=== PATIENT | male | born 1975 | race Caucasian/White ===

== ENCOUNTER 2016-09-30 20:01 | Emergency (ER) | payer MEDICAID ==
[~2016-09-30] VITALS: Ht 180.3 cm; Wt 90.2 kg
[~2016-09-30 20:01] MED LIST: FENO145T32 PO; FENO48TA16 PO; FINA1TAB PO; HYDR-3240 PO; SERT100T PO; SERT50TA PO
[2016-09-30 20:03] VITALS: BP 150/109
[2016-09-30] MEDS ORDERED: DIPH,PERTUSS(ACELL),TET VAC/PF 0.5 ML IM-VACC ONE ×2 (20:55→21:00)
[2016-09-30] MEDS ORDERED: LIDOCAINE 1%, 20ML SQ ONE (21:00)
[2016-09-30] MEDS ORDERED: BACITRACIN ZINC OINT 500U/GM, 0.9 GM ONE (22:27)
[2016-09-30] MEDS ORDERED: CEPHALEXIN 500 MG CAPSULE PO ONE (22:30)
[2016-09-30] MEDS ORDERED: CEPHALEXIN 500 MG CAPSULE ONE (22:31)
== END 2016-09-30 22:47 | disposition home or self-care (01) ==
LOC: ED 22:39
DX: S61.231A Puncture wound without foreign body of left index finger without damage to nail, initial encounter (principal); I10 Essential (primary) hypertension; E78.00 Pure hypercholesterolemia, unspecified; Z88.0 Allergy status to penicillin; X58.XXXA Exposure to other specified factors, initial encounter; Y93.89 Activity, other specified; Y99.8 Other external cause status; Y92.89 Other specified places as the place of occurrence of the external cause
CPT/HCPCS: 90471; 90715

== ENCOUNTER 2017-11-20 14:40 | Emergency (ER) | payer MEDICAID ==
[~2017-11-20] VITALS: Ht 177.8 cm; Wt 83.0 kg
[2017-11-20 15:08] LABS: BASOPHILS # (AUTO) 0.01 x10^3/uL (0-0.1); BASOPHILS % (AUTO) 0 % (0-1); EOSINOPHILS # (AUTO) 0.04 x10^3/uL (0-0.4); EOSINOPHILS % (AUTO) 1 % (1-7); LYMPHOCYTES # (AUTO) 2.12 x10^3/uL (1-3.4); LYMPHOCYTES % (AUTO) 32 % (22-44); MD NO; MEAN CORPUSCULAR HEMOGLOBIN 31.1 pg (27.5-34.5); MEAN CORPUSCULAR HGB CONC 34.4 g/dL (33.2-36.2); MEAN CORPUSCULAR VOLUME 90.5 fL (81-97); MEAN PLATELET VOLUME 7.4 fL (7.4-10.4); MONOCYTES # (AUTO) 0.47 x10^3/uL (0.2-0.8); MONOCYTES % (AUTO) 7 % (2-9); NEUTROPHILS # (AUTO) 4.07 x10^3/uL (1.8-6.8); NEUTROPHILS % (AUTO) 61 % (42-75); PLATELET COUNT 333 x10^3/uL (130-400); RED BLOOD COUNT 5.53 x10^6/uL (4.38-5.82); RED CELL DISTRIBUTION WIDTH 12.5 % (9.4-14.8)
[2017-11-20 15:18] LABS: ALANINE AMINOTRANSFERASE 52 U/L (12-78); ANION GAP 8 mmol/L (5-15); CHLORIDE 105 mmol/L (98-107)
[2017-11-20] MEDS ORDERED: GEMF600T3 PO (15:19)
[2017-11-20] MEDS ORDERED: LOSA50TA6 PO (15:19)
[2017-11-20 15:22] LABS: ALKALINE PHOSPHATASE 145 U/L (45-117); BILIRUBIN,TOTAL 0.7 mg/dL (0.2-1.0); TOTAL PROTEIN 9.1 g/dL (6.4-8.2); TROPONIN I < 0.015 ng/mL (0.000-0.045)
[2017-11-20] MEDS ORDERED: OMNIPAQUE 350 MG/ML, 100ML BOTTLE ONE (15:37)
[2017-11-20] MEDS ORDERED: MECLIZINE CHEWABLE 25 MG TAB PO ONE (17:30)
[2017-11-20] MEDS ORDERED: MECLIZINE CHEWABLE 25 MG TAB ONE (17:52)
[2017-11-20 19:38] VITALS: BP 117/98
== END 2017-11-20 19:41 | disposition home or self-care (01) ==
LOC: ED 16:12
DX: R42 Dizziness and giddiness (principal); R07.89 Other chest pain; I10 Essential (primary) hypertension
CPT/HCPCS: 36415; 71275; 80053; 83880; 84484; 85025; 85379; 93005; 99285; Q9967

== ENCOUNTER → 2018-02-12 | Outpatient (CLI) | payer MEDICAID ==
[~2018-02-12] MED LIST changes: +GEMF600T4 PO; +LOSA50TA7 PO
== END | disposition home or self-care (01) ==
LOC: CFH 12:33
PROVIDERS: ATTEND Internal Medicine Cardiovascular Disease
DX: R42 Dizziness and giddiness (principal); R07.9 Chest pain, unspecified; I10 Essential (primary) hypertension; E78.5 Hyperlipidemia, unspecified
CPT/HCPCS: 93306

== ENCOUNTER 2018-10-19 12:53 | Emergency (ER) | payer MEDICAID ==
[~2018-10-19] VITALS: Ht 180.3 cm; Wt 87.0 kg
[~2018-10-19 12:53] MED LIST changes: -GEMF600T4 PO; +GEMF600T8 PO; +LOSA50TA14 PO; -LOSA50TA7 PO
[2018-10-19 12:56] VITALS: BP 130/87
--- NOTE | 2018-10-19 14:09 | NUR ---
pt given incorrect instructions regarding recheck/follow up at previous visit. pt should return in 1 week (total of 2 weeks from previous visit) for follow up per provider.
== END 2018-10-19 14:26 | disposition home or self-care (01) ==
LOC: ED 14:15
DX: S61.551A Open bite of right wrist, initial encounter (principal); I10 Essential (primary) hypertension; F41.1 Generalized anxiety disorder; F32.9 Major depressive disorder, single episode, unspecified; E78.00 Pure hypercholesterolemia, unspecified; Z90.89 Acquired absence of other organs; W64.XXXA Exposure to other animate mechanical forces, initial encounter; Y93.89 Activity, other specified; Y92.89 Other specified places as the place of occurrence of the external cause; Y99.8 Other external cause status
CPT/HCPCS: 99281

== ENCOUNTER 2018-10-26 14:36 | Emergency (ER) | payer MEDICAID ==
[~2018-10-26] VITALS: Ht 180.3 cm; Wt 90.7 kg
[2018-10-26 14:39] VITALS: BP 157/96
[2018-10-26] MEDS ORDERED: RABIES VACCINE /PF 2.5 UNITS IM-VACC ONE (15:30)
== END 2018-10-26 16:42 | disposition home or self-care (01) ==
LOC: ED 15:51
DX: Z23 Encounter for immunization (principal); I10 Essential (primary) hypertension; F41.1 Generalized anxiety disorder; F32.9 Major depressive disorder, single episode, unspecified; Z88.0 Allergy status to penicillin; Z90.49 Acquired absence of other specified parts of digestive tract
CPT/HCPCS: 36415; 90471; 90675